=== PATIENT | male | born 1940 | race Caucasian/White ===

== ENCOUNTER 2024-04-17 20:55 | Emergency (ER) | payer OTHER, MEDICAID ==
[~2024-04-17] VITALS: Ht 162.6 cm; Wt 69.9 kg
[2024-04-17 21:34] VITALS: BP_SYST 142; PULSE 82; RESP 18; TEMP 98.7; O2SAT 96
[2024-04-17] MEDS ORDERED: ZIT250 PO (23:16)
[2024-04-17] MEDS ORDERED: NIRM1TAB9 PO (23:17)
[2024-04-17 23:28] VITALS: BP_SYST 142; PULSE 82; RESP 18; TEMP 98.7; O2SAT 96
== END 2024-04-17 23:28 | disposition home or self-care (01) ==
LOC: SED 20:55
DX: U07.1 COVID-19 (principal); J12.82 Pneumonia due to coronavirus disease 2019; R07.89 Other chest pain; Z98.890 Other specified postprocedural states; I11.0 Hypertensive heart disease with heart failure; I50.9 Heart failure, unspecified; E11.9 Type 2 diabetes mellitus without complications; J45.909 Unspecified asthma, uncomplicated; Z85.118 Personal history of other malignant neoplasm of bronchus and lung
CPT/HCPCS: 71045; 99283